=== PATIENT | female | born 1965 | race Caucasian/White ===

== ENCOUNTER → 2016-11-27 | Outpatient (CLI) | payer OTHER ==
[~2016-11-27] MED LIST: AUGMENTIN PO; CIPRO PO; DEPO-MEDROL20 MG/ML IM; FLEXERIL10 M1 PO; FLOMAX0.4 M1 PO; LODINE PO; MAXZIDE; NO MEDICATIONS; PERCOCET 5/321 UDTAB PO; PHENERGAN25 MG PO; TEMAZEPAM PO
--- NOTE | ~2016-11-27 | CR63 ---
[facility]. [facility] A Service of [facility] & [facility] RADIOLOGY TEXT RESULTS PATIENT: KRISTINE VENTURA LOCATION: [facility] : 65 UNIT #: [id number] AGE: [address]: Link Ward MD SEX: F ORDER DR: [id number] [place] [id number] O MR#: [id number] Acc #: [id number] NAME: KRISTINE VENTURA : 1965 SEX: F STUDY DATE/TIME: 11/27/2016 11:20 UNIT: [facility] ROOM: STUDY DESCRIPTION: CR Chest 2 View Attending Physician: Link Ward M.D. Referring Physician: Link Ward M.D. Ordering Physician: Link Ward M.D. Primary Care Physician: Link Ward M.D. MEDICAL IMAGING REPORT This report is preliminary unless electronic signature is present. EXAM Chest PA and lateral 11/27/2016 HISTORY Cough, chest congestion and shortness of breath for 2 months. Smoking history for 20 years. FINDINGS PA and lateral examination of the chest upright shows a good expansion of the parenchyma with a normal distribution of the pulmonary vascularity. There is no indication of congestion, effusion, infiltrate, tumor, or nodular density. The pleural reflections and diaphragmatic contours are normal. The cardiac silhouette and mediastinal anatomy is within normal limits. IMPRESSION Normal chest. Dictated by... Eulogio Tran M.D. THIS IS AN ELECTRONICALLY VERIFIED REPORT Eulogio Tran M.D. at 11/28/2016 7:22 AM KRT/to TD: 11/27/2016 23:24 JOB #: [id number] MEDICAL IMAGING REPORT Page 1 of 1
== END | disposition home or self-care (01) ==
LOC: SRAD 11:01
DX: R06.2 Wheezing (principal); R05 Cough; R09.89 Other specified symptoms and signs involving the circulatory and respiratory systems
CPT/HCPCS: 71020